=== PATIENT | female | born 2000 | race African-American/Black ===

== ENCOUNTER 2025-03-22 16:24 | Emergency (ER) | payer OTHER, MEDICAID ==
[~2025-03-22] VITALS: Ht 167.6 cm; Wt 87.0 kg
[2025-03-22 16:38] VITALS: O2SAT 96
[2025-03-22] MEDS: BACITRACIN ZINC OINT UDPKT TOP ONE (18:17)
[2025-03-22 18:18] VITALS: BP 126/74; PULSE 94; RESP 16; TEMP 36.7; O2SAT 100
== END 2025-03-22 18:21 ==
LOC: ER 16:24
DX: S40.212A Abrasion of left shoulder, initial encounter (principal); S80.212A Abrasion, left knee, initial encounter; X58.XXXA Exposure to other specified factors, initial encounter; Y93.89 Activity, other specified; Y92.89 Other specified places as the place of occurrence of the external cause; Y99.8 Other external cause status
CPT/HCPCS: 99283